=== PATIENT | female | born 1955 | race Caucasian/White ===

== ENCOUNTER 2016-07-24 15:04 | Emergency (ER) | payer OTHER ==
[~2016-07-24] VITALS: Ht 160 cm; Wt 108.9 kg
[~2016-07-24 15:04] MED LIST: ALPRAZOLAM2 MG PO; ANTIVERT 12.512.5 M1 PO; ASPIRIN CHILDRE81 MG PO; ASPIRIN81 M4 PO; ATIVAN 0.5MG T0.5 MG PO; ATORVASTATIN CA20 MG PO; BENZTROPINE ME0.5 M1 PO; CARBAMAZEPINE100 M2 PO; CRESTOR10 M1 PO; ESCITALOPRAM20 MG PO; FOLIC ACID 1 MG PO; FOLIC ACID1 M1 PO; LASIX40 M1 PO; LORAZEPAM1 MG PO; OMEPRAZOLE20 M2 PO; Orajel TOP; PREVACID30 M1 PO; PRILOSEC 20MG C20 MG PO; PROPRANOLOL HCL10 M1 PO; RISPERDAL1 M1 PO; ROZEREM8 MG PO; SERTRALINE HCL50 MG PO; VENTOLIN HFA18 GM INH; VITAMIN B-1100 MG PO; VITAMIN B1100 MG PO; XANAX1 M1 PO; ZOFRAN 4MG ORALL4 MG PO; ZOLOFT100 M1 PO; ZONISAMIDE25 MG PO
--- NOTE | 2016-07-24 15:31 | ED PSYCHIATRIC COMPLAINT ---
History of Present Illness General Chief Complaint: ETOH/Drug Related Complaint Stated Complaint: ETOH DETOX/+SI Source: patient Exam Limitations: no limitations Vital Signs & Intake/Output Vital Signs & Intake/Output Vital Signs Date Time Temp Pulse Resp B/P Pulse O2 O2 Flow FiO2 Ox Delivery Rate 07/24 2246 98.0 84 18 171/71 98 Room Air 07/24 2123 98.3 96 18 141/67 07/24 2120 98.3 96 18 141/67 98 Room Air 07/24 1830 Room Air 07/24 1830 99.1 92 18 121/71 / 1829 99.1 07/24 1818 101.6 92 18 121/71 93 Room Air 07/24 1513 99.1 95 18 97 Room Air ED Intake and Output 07/25 0000 07/24 1200 Intake Total Output Total Balance Patient 240 lb Weight Allergies Coded Allergies: atorvastatin (From Lipitor) (Mild, RASH - PER PT DOESNT WORK 07/24/16) lamotrigine (Mild, RASH 06/02/16) ciprofloxacin (From Cipro) (Intermediate, NEUROLOGICAL REACTION 06/02/16) Reconcile Medications Albuterol Sulfate (Ventolin Hfa) 90 MCG HFA.AER.AD 2 PUF INH Q4P PRN WHEEZING Aspirin (Aspirin*) 81 MG TAB.CHEW 81 MG PO DAILY HEART HEALTH Benztropine Mesylate 0.5 MG TABLET 0.5 MG PO 0800,2200 eps prevention Carbamazepine 100 MG TAB.CHEW 200 MG PO 0800,2200 MOOD STABILITY Take 2 tablets (200mg) by mouth twice a day. Folic Acid 1 MG TABLET 1 TAB PO DAILY vitamin supplementation (Reported) Furosemide (Lasix) 40 MG TABLET 40 MG PO 1115 edema Take 1 tablet by mouth every day. Lansoprazole (Prevacid) 30 MG CAPSULE.DR 1 CAP PO DAILY GI (Reported) Propranolol HCl 10 MG TABLET 10 MG PO 0800,1999 ANXIETY Risperidone (Risperdal) 1 MG TABLET 1.5 MG PO 0800,2200 clear thoughts Take 1 and 1/2 tablets (1.5mg) by mouth twice a day Rosuvastatin Calcium (Crestor) 10 MG TABLET 10 MG PO 1999 HIGH CHOLESTROL Sertraline HCl (Zoloft) 100 MG TABLET 2 TAB PO DAILY DEPRESSION/ANXIETY ( Reported) Thiamine HCl (Vitamin B-1) 100 MG TABLET 100 MG PO DAILY VITAMIN SUPPORT ( Reported) Triage Note: 60 Y/0 FEMALE C/O SI THOUGHTS FOR APPROX 1 WEEK; STATES HAS BEEN DRINKING DAILY FOR APPROX 1 WEEK AND HAS BEEN HAVING ISSUES WITH HER FATHER - "IF THIS IS THE WAY LIFE IS GOING TO BE, ITS NOT WORTH IT". +SI, ALSO STATES +HI BUT DOES NOT SPECIFY. +ETOH TODAY - 2 BOTTLES OF WINE WHICH IS APPROX NORMAL FOR PT. DENIES HX SEIZURES BUT DOES ADMIT TO TREMORS - PT FEELS TREMULOUS NOW. PT C/O CHEST "PRESSURE". EKG ORDERED. Triage Nurses Notes Reviewed? yes HPI: This patient is a 61-year-old female with past medical history including alcohol dependence and hyperlipidemia who presented to the emergency department today for multiple complaints. The patient reported that over the last 5 days her alcohol consumption has increased. She reported that she has been drinking approximately 2 bottles of wine daily. She reported that her last drink was today and she drank, "at least 2 bottles of wine," today. The patient reported that she was previously sober for a period of approximately 7 months at the [facility]. She has gone through alcohol detox in the past. She denied history of any alcohol withdrawal seizures. The patient reported that she is feeling shaky and nauseous currently. She denied any vomiting or abdominal pain. The patient reported that she is feeling some chest pressure, but no chest pain. She reported that she has difficulty breathing at baseline. She reported that she is the heaviest she has ever been and it has been causing increased difficulty breathing. The patient is requesting alcohol detox. She reported suicidal ideation. She denied any homicidal ideation. The patient denies any audio or visual hallucinations. She denied any illicit drug use. (KIMBERLY ANGEL,HUSAM) Past History Travel History Traveled to [place] past 21 day No Medical History Any Pertinent Medical History? see below for history Neurological: MIGRAINE LIGHT EENT: NONE Cardiovascular: hyperlipidemia Respiratory: NONE Gastrointestinal: GERD Hepatic: NONE Renal: NONE Musculoskeletal: KNEE PAIN Psychiatric: DEPRESSION, ANXIETY, Endocrine: obesity Blood Disorders: NONE Cancer(s): NONE BRILLIANDEER LOPPER/Reproductive: NONE History of MRSA: No History of VRE: No History of CDIFF: No Surgical History Surgical History: non-contributory Psychosocial History Who do you live with Spouse Services at Home None What is your primary language Setswana Tobacco Use: Never used Family History Family History, If Any: Relation not specified for: *No pertinent family history Hx Contributory? No (HUSAM HARRIS PA-C) Review of Systems Review of Systems Constitutional: Reports: no symptoms. EENTM: Reports: no symptoms. Respiratory: Reports: see HPI. Cardiovascular: Reports: see HPI. GI: Reports: see HPI. Genitourinary: Reports: no symptoms. Musculoskeletal: Reports: no symptoms. Skin: Reports: no symptoms. Neurological/Psychological: Reports: see HPI. All Other Systems: Reviewed and Negative (HUSAM HARRIS PA-C) Physical Exam Physical Exam General Appearance: well developed/nourished, no apparent distress, alert, awake Neurological/Psychiatric: no motor/sensory deficits, awake, alert, calm, inker and opaquer II- XII nml as tested, oriented x 3 Comments: Well-developed well-nourished person in no acute distress HEENT: Normal EENT exam, head normocephalic, moist mucous membranes Pupils equally round and reactive to light. Neck: Supple, no lymphadenopathy Back: Normal gait. Normal inspection Cardiovascular: Regular rate and rhythm with no murmurs, rubs, or gallops. No carotid bruits. Capillary refill less than 2 seconds Respiratory: Chest nontender. No respiratory distress. Breath sounds clear to auscultation bilaterally with no wheezes, rales, or rhonchi. No diminished breath sounds or stridor Extremity: Normal and equal pulses Neuro: Alert oriented x3, cranial nerves II through XII grossly intact. Skin: No appreciable rash on exposed skin, skin is warm and dry. Psych: Mood and affect is normal SAD PERSONS Done? yes (HUSAM HARRIS PA-C) Progress Differential Diagnosis: dementia, drug intoxication, drug overdose, drug withdrawal, encephalitis, alcohol intoxication, alcohol withdrawal, major depressive disorder, generalized anxiety disorder Plan of Care: Orders Procedure Date/time Status ED CRISIS PSYCH CONSULT 07/24 1649 Active DIRECT LDL 07/24 1605 Complete CIWA 07/24 1530 Active Telemetry/Radio Station Audio Engineer 07/24 1526 Active Continuous Observation Monitor 07/24 1526 Active URINE DRUGS OF ABUSE 07/24 1526 Complete THYROID STIMULATING HORMONE 07/24 1526 Complete TROPONIN LEVEL 07/24 1526 Complete LIPID PANEL 07/24 1526 Complete FREE T4 07/24 1526 Complete ETHANOL 07/24 1526 Complete COMPREHENSIVE METABOLIC PANEL 07/24 1526 Complete CBC WITHOUT DIFFERENTIAL 07/24 1526 Complete EKG 07/24 1519 Active Laboratory Tests 07/24/16 1635: Urine Opiates Screen < 100.00, Methadone Screen < 40, Barbiturate Screen < 60, Ur Phencyclidine Scrn < 6.00, Amphetamines Screen < 100, U Benzodiazepines Scrn < 85, Urine Cocaine Screen < 50, Urine Cannabis Screen < 5.00 07/24/16 1605: Anion Gap 15, Estimated GFR > 60, BUN/Creatinine Ratio 18.6, Glucose 101 H, Calcium 9.2, Total Bilirubin 0.5, AST 38 H, ALT 56 H, Alkaline Phosphatase 97, Troponin I < 0.01, Total Protein 7.9, Albumin 4.3, Globulin 3.6, Albumin/ Globulin Ratio 1.2, Triglycerides 1018 H, Cholesterol 258 H, LDL Cholesterol, Calc ND, HDL Cholesterol 51, Cholesterol/HDL Ratio 5.1 H, TSH 7.620 H, Free T4 0.97, CBC w Diff NO MAN DIFF REQ, RBC 4.67, MCV 84.7, MCH 28.7, RDW 16.9 H, MPV 6.3 L, Gran % 72.3, Lymphocytes % 22.0, Monocytes % 4.5, Eosinophils % 0.7, Basophils % 0.5, Absolute Granulocytes 7.3 H, Absolute Lymphocytes 2.2, Absolute Monocytes 0.4, Absolute Eosinophils 0.1, Absolute Basophils 0, PUBS MCHC 33.9, Serum Alcohol 85.0 Diagnostic Imaging: Viewed by Me: Radiology Read. Discussed w/RAD: Radiology Read. CXR Impression: PATIENT: FRANCISCA WHALEN PRESENT AGE: 60 PATIENT ACCOUNT NO: [id number] : 55 LOCATION: [facility] ORDERING PHYSICIAN: HUSAM HARRIS PA-C SERVICE DATE: 07/24/16 EXAM TYPE: RAD - XRY- PORTABLE CHEST XRAY EXAMINATION: XR PORTABLE CHEST CLINICAL INFORMATION: EtOH. Chest pressure. COMPARISON: Chest x-ray 06/08/2016 TECHNIQUE: Portable AP portable view of the chest was obtained. 3:52 PM FINDINGS: No significant abnormality is noted involving the heart, lungs, mediastinum, bony thorax or soft tissues. IMPRESSION: Unremarkable examination. DICTATED BY: RAVINDRA HECTOR MD DATE/TIME DICTATED:07/24/161613 AVIATION ORDNANCE OFFICER:ROB DATE/TIME TRANSCRIBED:07/24/161613 CONFIDENTIAL, DO NOT COPY WITHOUT APPROPRIATE AUTHORIZATION. <Electronically signed in Other Vendor System> SIGNED BY: RAVINDRA HECTOR MD 07/24/16 3028 Comments: CRISIS STATED THAT THIS PATIENT WILL BE A HOLD OVER UNTIL THE MORNING. 07/24/2016 10:40:24 PM: I spoke with the crisis steam shovel operator who evaluated this patient. He reported that the patient is denying SI or HI. He spoke with the psychiatrist who thinks that she is cleared psychiatrically and does not warrant a Inpatient Psychiatry admission. He reported that he got her a bed for alcohol detox in [place] which the patient adamantly declined. I spoke to the patient. She reported, "I don't know why I can't just be admitted to Inpatient Psychiatry." I signed the patient that because she was cleared psychiatrically and is still denying SI/HI, which she confirmed, that she wouldn't get up and down stairs. I did discuss with this patient that we do not do alcohol detox here and that it is important that if she wants alcohol detox that she except the bed in [place]. The patient is adamantly refusing to go to [place] for alcohol detox. I also discussed with the patient the option to stay here overnight to be monitored and have serial CIWA scores and medicated when this area. The patient is refusing to stay here in the emergency department. She is requesting to go home. She is refusing alcohol detox now. Her is at the bedside who will take her home. She has a stable gait and is alert and oriented. She is capable of making medical decisions at this time. (HUSAM HARRIS PA-C) Departure Departure Disposition: HOME OR SELF CARE Condition: Stable Clinical Impression Primary Impression: Alcohol intoxication Qualifiers: Complication of substance-induced condition: with unspecified complication Qualified Code: F10.129 - Alcohol abuse with intoxication, unspecified Referrals: JODI BARILLAS,BRITTANY Arteaga (PCP/Family) Additional Instructions: Continue to take all previously prescribed medications as directed. Follow-up with IOP. Departure Forms: Customer Survey General Discharge Information (HUSAM HARRIS PA-C) PA/BLENDER CONVEYOR OPERATOR Co-Sign Statement Statement: ED Attending supervision documentation- [] I saw and evaluated the patient. I have also reviewed all the pertinent lab results and diagnostic results. I agree with the findings and the plan of care as documented in the PA's/BLENDER CONVEYOR OPERATOR's documentation. [x] I have reviewed the ED Record and agree with the PA's/BLENDER CONVEYOR OPERATOR's documentation. [] Additions or exceptions (if any) to the PAs/BLENDER CONVEYOR OPERATOR's note and plan are summarized below: [] (KIRSS BARILLAS,MELANIE Scott)
[2016-07-24] MEDS ORDERED: ZOLOFT100 M1 PO (16:07)
[2016-07-24] MEDS ORDERED: PREVACID30 M1 PO (16:10)
--- NOTE | 2016-07-24 16:18 | RADIOLOGY REPORT ---
EXAMINATION: XR PORTABLE CHEST CLINICAL INFORMATION: EtOH. Chest pressure. COMPARISON: Chest x-ray 06/08/2016 TECHNIQUE: Portable AP portable view of the chest was obtained. 3:52 PM FINDINGS: No significant abnormality is noted involving the heart, lungs, mediastinum, bony thorax or soft tissues. IMPRESSION: Unremarkable examination.
[2016-07-24 16:21] LABS: ABSOLUTE BASOPHIL COUNT 0 /CUMM (0.0-0.2); ABSOLUTE EOSINOPHIL COUNT 0.1 /CUMM (0.0-0.7); ABSOLUTE GRANULOCYTE CT 7.3 /CUMM (1.4-6.5); ABSOLUTE LYMPH COUNT 2.2 /CUMM (1.2-3.4); ABSOLUTE MONOCYTE COUNT 0.4 /CUMM (0.10-0.60); BASOPHIL % 0.5 % (0.0-2.0); EOSINOPHIL % 0.7 % (0-5); GRANULOCYTE % 72.3 % (42.2-75.2); HEMATOCRIT 39.5 % (37-47); MEAN CORPUSCULAR HGB 28.7 PG (27.0-31.0); MEAN CORPUSCULAR HGB CONC 33.9 G/DL (33.0-37.0); MEAN CORPUSCULAR VOLUME 84.7 FL (81.0-99.0); MEAN PLATELET VOLUME 6.3 FL (7.4-10.4); PLATELET COUNT 343 /CUMM (130-400); RBC DISTRIBUTION WIDTH 16.9 % (11.5-14.5); RED BLOOD CELL CT 4.67 /CUMM (4.20-5.40)
--- NOTE | 2016-07-24 19:14 | ED PSY CRISIS COLLATERAL NOTE ---
Collateral Note Collateral Note Family/Inform/Mervat Contacts: This clinician called Jeremy Romero [phone]. The reported his has been drinking for (1) week . He reports the drinks 2 to 3 bottles of wine daily. He reports his has a history of depression and Alcohol use. He reports his having previous treatment at [facility] in May of 2016. He reports his having suicidal ideation making statements " why should I continue on living". The reports current medication Zoloft and his receiving treatment from [facility].
--- NOTE | 2016-07-24 20:03 | ED PSYCH CRISIS CONSULTATION ---
See Addendum Crisis Consult Basic Assessment Date of Consult: 07/24/16 Responsible Person/Accompanied By: Self Insurance Authorization: Insurance #1: Insurance name: AZEEM VAN Phone number: Policy number: [id number] Group number: [id number] Authorization number: ED Provider: Patient's ED Provider: HUSAM HARRIS PA-C Primary Care Physician: Patient's PCP: BRITTANY ZAPATA MD PCP's Current Psychiatrist: Dr. Missy Awan Chief Complaint: ETOH/Drug Related Complaint Patient's Quote: " I want to be detoxed" " If this is my life, why try" Present Illness: Pt is a 60-year-old female who presented to the emergency room for detox with suicidal ideation with no plan. " If this is my life, whwy should I try" Pt reports she has been drinking 2-3 bottles of wine daily for one week. She reported drinking (2) bottles of wine today and going to [facility] and her clinician stating she need to go to the hospital. Pt denied any illicit drug use. She reports being depressed, sad, and hopeless. She reports current stressor loss of mother in January 2016 and having financial problems. Pt is currently being treated at [facility] Int[facility]. [place]. Pt is oriented x3, alert, cooperative, and appears to be motivated to be detoxed and continue with treatment at [facility]. Patient's Address: [address] [place] [address] Other Who Do You Live With? Spouse Family/Informants Interviewed: Kwaku Romero [phone]. Allergies - Coded Allergies: atorvastatin (From Lipitor) (Mild, RASH - PER PT DOESNT WORK 07/24/16) lamotrigine (Mild, RASH 06/02/16) ciprofloxacin (From Cipro) (Intermediate, NEUROLOGICAL REACTION 06/02/16) Current Medications - Scheduled Medications Aspirin (Aspirin*) 81 MG TAB.CHEW 81 MG PO DAILY HEART HEALTH #14 TAB Prescribed by KERRI AMOR APRN on 06/11/16 Benztropine Mesylate 0.5 MG TABLET 0.5 MG PO 0800,2200 eps prevention #28 TAB Prescribed by KERRI AMOR APRN on 06/11/16 Last Taken: Unknown Dose at an unknown date and time Carbamazepine 100 MG TAB.CHEW 200 MG PO 0800,2200 MOOD STABILITY #28 TAB Prescribed by KERRI AMOR APRN on 06/11/16 Last Taken: Unknown Dose at an unknown date and time Folic Acid 1 MG TABLET 1 TAB PO DAILY vitamin supplementation (Reported) Entered as Reported by KERRI AMOR APRN on 06/03/16 1600 Furosemide (Lasix) 40 MG TABLET 40 MG PO 1115 edema #14 TAB Prescribed by KERRI AMOR APRN on 06/11/16 Lansoprazole (Prevacid) 30 MG CAPSULE.DR 1 CAP PO DAILY GI (Reported) Entered as Reported by VALENCIA KOWALSKI on 07/24/16 1610 Propranolol HCl 10 MG TABLET 10 MG PO 0800,1999 ANXIETY #28 TAB Prescribed by KERRI AMOR APRN on 06/11/16 Risperidone (Risperdal) 1 MG TABLET 1.5 MG PO 0800,2200 clear thoughts #21 TAB Prescribed by KERRI AMOR APRN on 06/11/16 Rosuvastatin Calcium (Crestor) 10 MG TABLET 10 MG PO 2000 HIGH CHOLESTROL #14 TAB Prescribed by KERRI AMOR APRN on 06/11/16 Last Taken: At an unknown date and time Sertraline HCl (Zoloft) 100 MG TABLET 2 TAB PO DAILY DEPRESSION/ANXIETY ( Reported) Entered as Reported by VALENCIA KOWALSKI on 07/24/16 1607 Thiamine HCl (Vitamin B-1) 100 MG TABLET 100 MG PO DAILY VITAMIN SUPPORT ( Reported) Entered as Reported by KERRI AMOR APRN on 06/03/16 1601 Last Taken: At an unknown date and time Scheduled PRN Medications Albuterol Sulfate (Ventolin Hfa) 90 MCG HFA.AER.AD 2 PUF INH Q4P PRN WHEEZING #1 INHAL Prescribed by KERRI AMOR APRN on 06/11/16 Laboratory Results: Laboratory Tests 07/24/16 1635: Urine Opiates Screen < 100.00, Methadone Screen < 40, Barbiturate Screen < 60, Ur Phencyclidine Scrn < 6.00, Amphetamines Screen < 100, U Benzodiazepines Scrn < 85, Urine Cocaine Screen < 50, Urine Cannabis Screen < 5.00 07/24/16 1605: Anion Gap 15, Estimated GFR > 60, BUN/Creatinine Ratio 18.6, Glucose 101 H, Calcium 9.2, Total Bilirubin 0.5, AST 38 H, ALT 56 H, Alkaline Phosphatase 97, Troponin I < 0.01, Total Protein 7.9, Albumin 4.3, Globulin 3.6, Albumin/ Globulin Ratio 1.2, Triglycerides 1018 H, Cholesterol 258 H, LDL Cholesterol, Calc ND, HDL Cholesterol 51, Cholesterol/HDL Ratio 5.1 H, TSH 7.620 H, Free T4 0.97, CBC w Diff NO MAN DIFF REQ, RBC 4.67, MCV 84.7, MCH 28.7, RDW 16.9 H, MPV 6.3 L, Gran % 72.3, Lymphocytes % 22.0, Monocytes % 4.5, Eosinophils % 0.7, Basophils % 0.5, Absolute Granulocytes 7.3 H, Absolute Lymphocytes 2.2, Absolute Monocytes 0.4, Absolute Eosinophils 0.1, Absolute Basophils 0, PUBS MCHC 33.9, Serum Alcohol 85.0 Past History Past Medical History Neurological: MIGRAINE LIGHT EENT: NONE Cardiovascular: hyperlipidemia Respiratory: NONE Gastrointestinal: GERD Hepatic: NONE Renal: NONE Musculoskeletal: KNEE PAIN Psychiatric: DEPRESSION, ANXIETY, Endocrine: obesity Blood Disorders: NONE Cancer(s): NONE CLEANER AND POLISHER/Reproductive: NONE Past Surgical History Surgical History: non-contributory Psychosocial History Strengths/Capabilities: agreeable to treatment, supportive Physical Limitations (Interventions): none reported Psychiatric Treatment History Psych Treatment Psychiatric Treatment Yes Inpatient Treatment Yes Outpatient Treatment Yes Location of Treatment [facility]. Reason for Treatment Alcohol Xnax detox and Depression Dates of Treatment Currently at [facility]. Response to Treatment Recent relapse. Diagnosis by History: OCD ETOH Dependence MDD- recurrent Substance Use/Abuse History Drug Use/Abuse Substances Used/Abused Yes Substance Used/Abused Alcohol First Use 16 yrs old Last Used today How much used/taken 2 bottles of wine How often daily. For how long 1 week Route of use oral Substance Abuse Treatment Substance Abuse Treatment Past Substance Abuse [place] Yes Inpatient Treatment Yes Outpatient Treatment Yes Location of Treatment [facility] Reason for Treatment Depression, Alcohol detox. Dates of Treatment currently being treated [facility], Last [facility] admission in 2015. Response to Treatment recent relapse drinking for 1 week. Current Mental Status Mental Status Orientation: Person, Place, Situation Affect: Depressed, Hopeless, Sad Speech: WNL Neuro-vegetative: Energy Decreased Appearance Appearance- Dress/Hygiene: Dressed Hospital clothing. Behaviors Thought Process: WNL Thought Content: WNL Memory: WNL Insight: Poor SI/HI Risk Assessment Past Suicidal Ideation/Attempts Yes Current Suicidal Ideation/Att Yes Past Homicidal Ideation/Att: No Current Homicidal Ideation/Attempts No Degree of Intent: Thoughts/No Intent Danger To: Self Gravely Disabled: Lack of Insight, Poor Impulse Control, Poor Judgment Risk Factors: SA/MH hospitalized, substance abuse, poor impulse control Lethality Ratin PTSD Checklist PTSD Score: PTSD Score: Response Value Disturbing memories,thoughts,images of stressful experience? Not at all 1 Disturbing dreams of stressful experience from past? Not at all 1 Suddenly acting/feeling as if reliving stressful experience? Not at all 1 Total 3 PTSD Done? patient declined ED Management Sitter: Yes Restraints: No DSM5/PS Stressors/Medical Prob Diagnosis' (DSM 5, Stressors, Medical): Major Depression Disorder, Unspecified F32.9 Alcohol Abuse F10.20 Current GAF: 30 Comments: Pt presents to the emergency room with suicidal ideation after drinking (2) bottles of wine with BAL 85. Pt requesting to detox and return to IOP. Departure Disposition Psych Medical Clearance Date: 07/24/16 Medically Cleared at: 1800 Time Started: 1800 Time Ended: 1900 Psychiatrist Consulted: Dr. Missy Awan Date Disposition Established: 07/24/16 Time Disposition Established: 1899 Plan for Disposition - Modality: Hold Over for detox of Alcohol. Rationale for Disposition: Pt presents to the emergency room with suicidal ideation after drinking (2) bottles of wine with BAL 85. Pt requesting to detox and return to IOP. This clinician consulted with Dr. Missy Awan for the PT to be detox and held over to the morning. Referrals JODI BARILLAS,BRITTANY Arteaga (PCP/Family)
[2016-07-24 22:46] VITALS: BP 171/71
== END 2016-07-24 22:55 ==
LOC: ERH 15:04
PROVIDERS: Physician Assistant
DX: F10.129 Alcohol abuse with intoxication, unspecified (principal)
CPT/HCPCS: 80307; 93005; 93010; G0463; G0480; J3101